=== PATIENT | male | born 1965 | race Caucasian/White ===

== ENCOUNTER 2016-09-11 18:48 | Inpatient (IN) | payer OTHER, BC ==
[2016-09-11] MEDS ORDERED: fentaNYL CITRATE 250 MCG/5 ML AMP ONE (18:52)
[2016-09-11] MEDS ORDERED: PROPOFOL 500 MG/50 ML INJ 50 ML ONE (18:57)
[2016-09-11 19:14] LABS: AUTOMATED NEUTROPHIL # 6.1 TH/MM3 (1.8-7.7); BASOPHIL # 0.2 TH/MM3 (0-0.2); BASOPHIL % 1.4 % (0.0-2.0); EOSINOPHIL # 0.3 TH/MM3 (0-0.4); EOSINOPHIL % 2.7 % (0.0-4.0); HEMATOCRIT 38.5 % (39.0-51.0); HEMO FLAGS DIFF FINAL; LYMPH % 35.4 % (9.0-44.0); LYMPHOCYTE # 3.9 TH/MM3 (1.0-4.8); MEAN CELL VOLUME 83.1 FL (80.0-100.0); MEAN CORPUSCULAR HEMOGLOBIN 28.7 PG (27.0-34.0); MEAN CORPUSCULAR HGB CONC 34.6 % (32.0-36.0); MONO % 4.6 % (0.0-8.0); NEUT % 55.9 % (16.0-70.0); PLATELET COUNT 223 TH/MM3 (150-450); RED BLOOD COUNT 4.63 MIL/MM3 (4.50-5.90); RED CELL DISTRIBUTION WIDTH 13.1 % (11.6-17.2)
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
[2016-09-11 19:17] LABS: I-STAT POTASSIUM 3.5 MMOL/L (3.5-4.9)
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
[2016-09-11] MEDS ORDERED: IOHEXOL 350 MG/ML 10 ML VIAL (for RAD DIAG) IV ONE (19:34)
[2016-09-11 19:40] LABS: APTT (PATIENT) 17.8 SEC (24.3-30.1); PROTHROMBIN TIME - PATIENT 10.7 SEC (9.8-11.6)
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
[2016-09-11] MEDS ORDERED: METF500T PO (21:07)
[2016-09-11] MEDS: HYDROmorphone HCL PF 1 MG/ML VIAL IV PUSH PRN (22:18)
[2016-09-12] VITALS (10 sets, daily range): BP systolic 130–182; BP diastolic 76–102; PULSE 98–121; RESP 16–18; TEMP 96.4–97.9; O2SAT 95–98
[2016-09-12] MEDS ORDERED: PROMETHAZINE INJ 25 MG/ML VIAL IM ONE (00:15)
[2016-09-12] MEDS ORDERED: NOVO7030P2 SQ (01:23)
[2016-09-12] MEDS ORDERED: GEMF600T PO (01:24)
[2016-09-12] MEDS ORDERED: CREON24 PO (01:25)
[2016-09-12] MEDS ORDERED: PROM25TA5 PO (01:26)
[2016-09-12] MEDS ORDERED: CYCL5TAB PO (01:27)
[2016-09-12] MEDS: HYDROmorphone HCL PF 1 MG/ML VIAL IV PUSH PRN ×4 (01:29→07:59)
[2016-09-12] MEDS ORDERED: ONDANSETRON HCL 4 MG/2 ML VIAL IV PUSH PRN (02:30)
[2016-09-12] MEDS ORDERED: INSULIN HUMAN REGULAR 1,000 UNITS/10 ML VIAL SQ PRN (02:45)
[2016-09-12] MEDS: LACTATED RINGER'S 1000 ML IV SCH ×2 (03:37→21:27)
[2016-09-12] MEDS: SODIUM CHLORID 0.9% 500 ML IV SCH ×2 (04:14→20:40)
[2016-09-12 05:35] LABS: AMYLASE 22 U/L (25-115)
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
[2016-09-12] MEDS ORDERED: ENALAPRILAT 1.25 MG/ML VIAL IV PRN (07:00)
[2016-09-12] MEDS ORDERED: SODIUM CHLORIDE 0.9% FLUSH 5 ML FLUSH IVF PRN ×2 (07:00→14:15)
--- NOTE | 2016-09-12 07:27 | RADRPT ---
EXAM DATE/TIME: 09/12/2016 07:14 [facility] COMPARISON: CT THORAX W CONTRAST, September 11, 2016, 19:21. SHOULDER LEFT (1 VW), September 11, 2016, 18:55. INDICATIONS : Shortness of breath. MEDICAL HISTORY : None. SURGICAL HISTORY : None. ENCOUNTER: Subsequent ACUITY: 2 days PAIN SCORE: 0/10 LOCATION: Bilateral chest FINDINGS: A single view of the chest demonstrates the lungs to be symmetrically aerated without evidence of mas s, infiltrate or effusion. The cardiomediastinal contours are unremarkable. Left humerus is anterior ly inferiorly dislocated with an oblique humeral shaft fracture. CONCLUSION: Humeral head remains anteriorly dislocated with a fracture. Lungs are clear Vivek Hobbs MD on September 12, 2016 at 7:24 Board Certified Radiologist. This report was verified electronically.
[2016-09-12] MEDS: ONDANSETRON HCL 4 MG/2 ML VIAL IV PRN ×2 (08:04→17:25)
[2016-09-12] MEDS: DOCUSATE SODIUM 100 MG CAP PO SCH ×2 (09:00→20:00)
[2016-09-12] MEDS ORDERED: LACTATED RINGER'S 1000 ML INJ 2,000 ML IV ONE (09:38)
[2016-09-12] MEDS ORDERED: PROPOFOL 200 MG/20 ML AMP IV ONE (09:38)
[2016-09-12] MEDS: MULTIVITAMIN INJ 10 ML, THIAMINE INJ 100 MG, FOLIC ACID INJ 1 MG in SODIUM CHLORID 0.9%... IV SCH (10:00)
[2016-09-12] MEDS ORDERED: VANCOMYCIN HCL 1000 MG VIAL ONE (10:16)
[2016-09-12] MEDS ORDERED: ceFAZolin INJ 1,000 MG VIAL ONE (10:16)
[2016-09-12] MEDS ORDERED: GENTAMICIN SULFATE 80 MG/2 ML VIAL ONE (10:16)
[2016-09-12] MEDS ORDERED: SODIUM CHLOR 0.9% 250 ML INJ 250 ML ONE (10:17)
[2016-09-12] MEDS ORDERED: ACETAMINOPHEN 1000 MG/100 ML VIAL IV ONE (11:07)
[2016-09-12] MEDS ORDERED: MIDAZOLAM HCL 2 MG/2 ML VIAL ONE (11:08)
[2016-09-12] MEDS ORDERED: DEXAMETHASONE SOD PHOS 4 MG/ML VIAL ONE (11:08)
[2016-09-12] MEDS ORDERED: FAMOTIDINE 20 MG/2 ML VIAL ONE (11:08)
[2016-09-12] MEDS ORDERED: ONDANSETRON HCL 4 MG/2 ML VIAL ONE (11:12)
[2016-09-12] MEDS ORDERED: ONDANSETRON HCL 4 MG/2 ML VIAL IV PUSH ONE (11:15)
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
[2016-09-12] MEDS ORDERED: diphenhydrAMINE HCL 25 MG CAP PO PRN (14:15)
--- NOTE | 2016-09-12 14:24 | PD.OP ---
cc: Matthew Calvert MD Operative Report Date of Surgery: Sep 12, 2016 Preoperative Diagnosis: Dislocation of left glenohumeral joint, left humeral neck fracture, comminuted left humeral shaft fracture Postoperative Diagnosis: Procedure: Open treatment of left shoulder dislocation, open reduction and fixation left proximal humerus fracture, open reduction internal fixation left humeral shaft fracture Anesthesia: Gen. Surgeon: Matthew Calvert Polysomnograph Tech(s): Steffen Guillen PA-C The surgical procedure was assisted by my physician hearing aid assistant. My P.A. presence was necessary throughout this case for the manipulation and positioning of the surgical extremity. My P.A. was assisting me throughout the duration of this procedure. The skill set of a physician hearing aid assistant was medically necessary to complete this procedure. During the surgical case the kennel technician was working at the back table and the physician hearing aid assistant was directly assisting me. Operation and Findings: Patient was seen and evaluated preoperatively. Patient was found to have a displaced proximal humerus fracture with dislocation of the humeral head. He also had a comminuted fracture of the humeral shaft. The risks and benefits of surgical and nonsurgical options were discussed in detail and informed consent was obtained for surgery. Patient was brought to the operating room and placed on or table. IV sedation and GETA were administered by anesthesiologist. Antibiotics were given prior to incision. Operative arm and shoulder were prepped with alcohol followed by Hibiclens and draped usual sterile fashion. Timeout procedure was performed. Procedure began with a 10 inch incision over the anterior shoulder and arm. Cephalic vein was identified. A deltopectoral approach was utilized proximally. Distally the brachialis was split. Attention was first turned towards reduction of the dislocation. Initial attempts to manipulate the proximal humerus reveal a humeral neck fracture. At this point the proximal humerus segment was reduced to the humeral head. Multiple threaded Steinmann pins were now placed through the proximal humerus segment into the humeral head fragment. Once the humeral head fragment was stabilized to the proximal humerus metaphyseal fragment, the humeral head was now gently reduced. A portion of the subscapularis muscle was elevated to allow for visualization of the joint. A Trinity elevator was placed between the humeral head and glenoid to aid in reduction. Multiplanar fluoroscopy confirmed reduction of the humeral head relative to the glenoid. There appeared to be a relatively large Hill- Sachs lesion along the posterior humeral head. Next attention was turned towards the humeral shaft fracture. The humeral shaft was in 3 large fragments. Each fragment was carefully keyed together. Soft tissue was removed from fracture sites. Fracture tenaculums were used to aid in reduction. Multiple 2.7 cortical lag screws were used to compress fracture fragments. Multiplanar fluoroscopy confirmed excellent alignment of the humeral shaft fragments. Next attention was turned to the urgent the humeral neck. The humeral shaft was now reduced up to the proximal humerus segment. Fracture keyed into anatomic alignment. K wires were used to hold provisional fixation. Additional 2.7 cortical lag screws were used to compress fracture fragments. At this point attention was turned towards internal fixation. A long Synthes proximal humerus plate was contoured to fit the humerus. Plate was provisionally held the bone with K wires. This plate was used to span the length of the humerus from the shoulder towards the distal humerus. 3.5 cortical screws were used to compress plate to bone. Fluoroscopy confirmed appropriate plate placement and fracture reduction. Multiple locking screws were now placed in the humeral head. Screws were predrilled and premeasured for appropriate length. Care was taken not to penetrate the articular surface. Additional screws were placed in the humeral shaft. The subscapularis tendon was now repaired with FiberWire suture. The suture was passed through bone tunnels of the lesser tuberosity. Additional sutures were passed through the plate and sutured to the plate for additional stability. Final fluoroscopy revealed well aligned fracture with well-placed hardware. Wound was thoroughly irrigated. Fascia was closed with #1 Vicryl, subcutaneous tissues closed with 3 -0 Vicryl, and skin was closed with aedlita. Sterile dressings were applied. Patient was placed into a sling. Patient was awakened and transferred to recovery in stable condition. Needle and sponge counts were correct. Matthew Calvert MD Sep 12, 2016 14:24
[2016-09-12] MEDS ORDERED: DEXTROSE 50% IN WATER 50 ML VIAL(D50) IV PUSH PRN (14:45)
[2016-09-12] MEDS ORDERED: GLUCAGON 1 MG/ML VIAL OTHER PRN (14:45)
--- NOTE | 2016-09-12 14:54 | RADRPT ---
EXAM DATE/TIME: 09/12/2016 12:03 [facility] COMPARISON: No previous studies available for comparison. INDICATIONS : ORIF left humerus. MEDICAL HISTORY : None. SURGICAL HISTORY : None. ENCOUNTER: Subsequent ACUITY: 2 days PAIN SCORE: Non-responsive. LOCATION: Left humerus. FINDINGS: Extensive hardware is noted within the left humerus status post ORIF. CONCLUSION: Status post ORIF of left humeral fracture with hardware in good position. James Weir MD on September 12, 2016 at 14:46 Board Certified Radiologist. This report was verified electronically.
[2016-09-12] MEDS ORDERED: MORPHINE SULFATE 4 MG/ML INJ ONE (15:00)
[2016-09-12] MEDS ORDERED: fentaNYL CITRATE 250 MCG/5 ML AMP ONE (15:00)
[2016-09-12] MEDS: INSULIN ASPART SUPPLEMENTAL SCALE SQ SCH ×2 (15:26→21:21)
[2016-09-12] MEDS ORDERED: *morphine SULFATE 8 MG/ML PERIprocedure ONLY ONE ×3 (15:29→15:51)
[2016-09-12] MEDS ORDERED: *LABETALOL HCL 100 MG/20 ML VIAL PERIprocedural Use ONLY ONE (15:49)
--- NOTE | 2016-09-12 16:17 | OTSOAPIP ---
TIME SESSION COMPLETED: AM TREATMENT TIME: 0 MINS. CHART REVIEWED. ATTEMPTED TO SEE FOR OT EVALUATION, HOWEVER OFF FLOOR FOR SURGERY. WILL FOLLOW NEXT DAY. Therapist: ISAAC MEDINA OT/Shahab Signature on file
--- NOTE | 2016-09-12 17:09 | EKG ---
Date Performed: 09/12/2016 Time Performed: 10:33:46 PTAGE: 50 years EKG: SINUS TACHYCARDIA NONSPECIFIC T-WAVE ABNORMALITY ABNORMAL RHYTHM ECG NO PREVIOUS TRACING DOCTOR: Hill Rudolph Interpretating Date/Time 09/12/2016 17:05:09
[2016-09-12] MEDS: KETOROLAC TROMETHAMINE 30 MG/ML (IVP) VIAL IV PUSH SCH (17:25)
[2016-09-12] MEDS: ceFAZolin 2 GM PREMIX 50 ML IV SCH (17:25)
[2016-09-12] MEDS: GEMFIBROZIL 600 MG TAB PO SCH (17:25)
[2016-09-12] MEDS: CALCIUM/VITAMIN D 250 MG/125 U TAB PO SCH (17:25)
[2016-09-12] MEDS: LIPASE/PROTEASE/AMYLASE (24,000/76,000/120,000) CAP PO SCH (17:25)
[2016-09-12] MEDS: MORPHINE SULFATE 4 MG/ML INJ IV PUSH PRN ×2 (17:25→21:22)
[2016-09-12] MEDS: ACETAMINOPHEN/HYDROcodone 325 MG/10 MG TAB PO PRN (19:58)
[2016-09-12] MEDS: FAMOTIDINE 20 MG TAB PO SCH (20:00)
[2016-09-12] MEDS: MAGNESIUM HYDROXIDE SUSP 30 ML CUP PO SCH (20:00)
[2016-09-12] MEDS: SODIUM CHLORIDE 0.9% FLUSH 5 ML FLUSH IVF SCH (20:00)
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
[2016-09-12] MEDS: PROMETHAZINE HCL 25 MG TAB PO PRN (21:22)
[2016-09-13] VITALS (8 sets, daily range): BP systolic 125–162; BP diastolic 74–86; PULSE 105–117; RESP 16–20; TEMP 96.6–98.6; O2SAT 92–96
[2016-09-13] MEDS: ONDANSETRON HCL 4 MG/2 ML VIAL IV PRN ×3 (00:16→14:04)
[2016-09-13] MEDS: HYDROmorphone HCL PF 1 MG/ML VIAL IV PUSH PRN ×4 (00:17→10:33)
[2016-09-13] MEDS: KETOROLAC TROMETHAMINE 30 MG/ML (IVP) VIAL IV PUSH SCH ×3 (00:17→12:09)
[2016-09-13] MEDS: ceFAZolin 2 GM PREMIX 50 ML IV SCH ×3 (02:37→17:54)
[2016-09-13] MEDS: SODIUM CHLOR 0.9% 1000 ML INJ 1,000 ML IV SCH ×3 (02:51→21:56)
[2016-09-13] MEDS: PROMETHAZINE HCL 25 MG TAB PO PRN ×2 (04:34→10:32)
[2016-09-13] MEDS: GEMFIBROZIL 600 MG TAB PO SCH ×2 (06:35→17:53)
[2016-09-13] MEDS: INSULIN ASPART SUPPLEMENTAL SCALE SQ SCH ×4 (06:35→21:05)
--- NOTE | 2016-09-13 06:35 | PD.ORT.PN ---
Subjective Subjective Remarks POD 1 s/p ORIF left humerus doing well. reports pain. resting comfortably Objective Vitals Vital Signs Date Time Temp Pulse Resp B/P Pulse Ox O2 Delivery O2 Flow Rate FiO2 09/13/16 04:00 96.6 105 16 148/85 94 09/13/16 00:00 96.7 108 16 140/86 94 09/12/16 20:30 104 142/92 09/12/16 20:00 97 Room Air 09/12/16 19:57 97.8 110 18 138/101 96 09/12/16 19:48 97 21 09/12/16 16:10 Nasal Cannula 2.00 09/12/16 16:00 98.5 88 18 162/94 98 Nasal Cannula 2 09/12/16 16:00 97.9 98 16 130/91 97 09/12/16 15:54 93 16 159/100 98 09/12/16 15:45 103 16 171/100 98 Nasal Cannula 3 09/12/16 15:30 100 16 160/98 97 Nasal Cannula 3 09/12/16 15:15 95 16 174/102 97 Nasal Cannula 3 09/12/16 15:00 91 18 152/95 97 Nasal Cannula 3 09/12/16 14:57 98.8 89 18 167/98 97 Nasal Cannula 3 09/12/16 10:05 112 182/99 09/12/16 10:00 98 09/12/16 08:00 97.7 115 18 169/102 95 I/O 09/12/16 09/12/16 09/12/16 09/13/16 09/13/16 09/13/16 07:00 15:00 23:00 07:00 15:00 23:00 Intake Total 135 ml 2500 ml 540 ml 360 ml Output Total 1000 ml 250 ml 400 ml Balance 135 ml 1500 ml 290 ml -40 ml Intake Oral 0 ml 240 ml 360 ml IV Total 135 ml 300 ml Other 2500 ml Output Urine Total 0 ml 250 ml 400 ml Estimated Blood Loss 1000 ml # Voids 4 # Bowel Movements 0 0 0 Result Diagram: 09/11/161849 Imaging Last 24 hours Impressions Pelvis X-Ray 09/11/161849 Signed Impressions: Service Date/Time: Sunday, September 11, 2016 18:42 - CONCLUSION: 1. No significant abnormality identified on AP pelvis radiograph. Mike Feliciano MD Head CT 09/11/161849 Signed Impressions: Service Date/Time: Sunday, September 11, 2016 19:11 - CONCLUSION: 1. No acute intracranial abnormalities. Fluid in left maxillary sinus. Mike Feliciano MD Chest X-Ray 09/11/161849 Signed Impressions: Service Date/Time: Sunday, September 11, 2016 18:42 - CONCLUSION: 1. Basilar and dependent atelectasis. No pneumothorax identified. Mike Feliciano MD Chest CT 09/11/161849 Signed Impressions: Service Date/Time: Sunday, September 11, 2016 19:21 - CONCLUSION: 1. Comminuted fracture proximal left humerus with anterior dislocation at the shoulder joint. There is also humeral shaft fracture. 2. A relatively nondisplaced fractures of the far anterior left seventh and eighth ribs. Thorax and atelectasis in Mike Feliciano MD Cervical Spine CT 09/11/161849 Signed Impressions: Service Date/Time: Sunday, September 11, 2016 19:11 - CONCLUSION: 1. No acute findings. Mild degenerative disc disease. Mike Feliciano MD Abdomen/Pelvis CT 09/11/161849 Signed Impressions: Service Date/Time: Sunday, September 11, 2016 19:21 - CONCLUSION: 1. Relatively nondisplaced fractures through the right transverse process of L2 and L3. 2. Probable mild contusion at the root of the mesentery and around the pancreatic head. No free air or significant free fluid. No solid visceral injury identified. Mike Feliciano MD Objective Remarks LUE: dressings clean and dry. intact. +sling. NVI distally with good radial nerve function Assessment & Plan Assessment and Plan 1) Left proximal humerus fracture/dislocation and humeral shaft fractures s/p ORIF - POD 1 -NWB -sling at all times -no dressing changes -pain control -plan for DC home tomrrow -f/u with Lucinda or [facility]I in 2 weeks Steffen Guillen Sep 13, 2016 06:35
[2016-09-13] MEDS ORDERED: HYDR-3366 PO (06:37)
[2016-09-13] MEDS: CALCIUM/VITAMIN D 250 MG/125 U TAB PO SCH ×3 (07:36→17:54)
[2016-09-13] MEDS: DOCUSATE SODIUM 100 MG CAP PO SCH (07:36)
[2016-09-13] MEDS: SODIUM CHLORIDE 0.9% FLUSH 5 ML FLUSH IVF SCH ×2 (07:36→21:12)
[2016-09-13 08:31] LABS: AUTOMATED NEUTROPHIL # 7.4 TH/MM3 (1.8-7.7); BASOPHIL # 0.1 TH/MM3 (0-0.2); BASOPHIL % 0.6 % (0.0-2.0); EOSINOPHIL # 0.1 TH/MM3 (0-0.4); EOSINOPHIL % 0.9 % (0.0-4.0); HEMO FLAGS DIFF FINAL; LYMPH % 24.3 % (9.0-44.0); LYMPHOCYTE # 2.7 TH/MM3 (1.0-4.8); MEAN CELL VOLUME 82.2 FL (80.0-100.0); MEAN CORPUSCULAR HEMOGLOBIN 29.1 PG (27.0-34.0); MEAN CORPUSCULAR HGB CONC 35.4 % (32.0-36.0); MONO % 7.3 % (0.0-8.0); NEUT % 66.9 % (16.0-70.0); PLATELET COUNT 242 TH/MM3 (150-450); RED BLOOD COUNT 3.17 MIL/MM3 (4.50-5.90); RED CELL DISTRIBUTION WIDTH 13.2 % (11.6-17.2)
[2016-09-13 08:42] LABS: BICARBONATE 28.9 MEQ/L (21.0-32.0); POTASSIUM 3.5 MEQ/L (3.5-5.1)
[2016-09-13] MEDS: DOCUSATE SODIUM 50 MG/SENNA 8.6 MG TAB PO SCH ×2 (10:30→21:06)
[2016-09-13] MEDS: LIPASE/PROTEASE/AMYLASE (24,000/76,000/120,000) CAP PO SCH ×3 (10:30→17:53)
[2016-09-13] MEDS: LIDOCAINE HCL 5% PATCH TD SCH (10:30)
[2016-09-13] MEDS: MULTIVITAMIN INJ 10 ML, THIAMINE INJ 100 MG, FOLIC ACID INJ 1 MG in SODIUM CHLORID 0.9%... IV SCH (10:34)
[2016-09-13] MEDS: ENOXAPARIN SODIUM 40 MG/0.4 ML SYRINGE SQ SCH (14:01)
[2016-09-13] MEDS: ACETAMINOPHEN/HYDROcodone 325 MG/10 MG TAB PO PRN ×3 (14:02→21:05)
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
[2016-09-13 20:12] LABS: HEMOGLOBIN A1b 2.5 %; HEMOGLOBIN P3 4.6 %
[2016-09-13] MEDS: FAMOTIDINE 20 MG TAB PO SCH (21:04)
[2016-09-13] MEDS: MAGNESIUM HYDROXIDE SUSP 30 ML CUP PO SCH (21:05)
[2016-09-13] MEDS: INSULIN DETEMIR 100 UNITS/ML VIAL SQ SCH (21:05)
[2016-09-13] MEDS: REMOVE OLD PATCH T-DERMAL SCH (21:06)
[2016-09-13] MEDS ORDERED: REST15CA PO (21:20)
[2016-09-13] MEDS: TEMAZEPAM 15 MG CAP PO PRN (22:33)
[2016-09-14 00:17] VITALS: BP 129/67; PULSE 109; RESP 19; TEMP 97.7; O2SAT 96
[2016-09-14] MEDS: ACETAMINOPHEN/HYDROcodone 325 MG/10 MG TAB PO PRN ×3 (00:37→09:00)
[2016-09-14] MEDS: ceFAZolin 2 GM PREMIX 50 ML IV SCH ×2 (00:37→08:51)
[2016-09-14] MEDS: LACTATED RINGER'S 1000 ML IV SCH (02:04)
[2016-09-14] MEDS: GEMFIBROZIL 600 MG TAB PO SCH ×2 (05:31→16:13)
[2016-09-14] MEDS: INSULIN ASPART SUPPLEMENTAL SCALE SQ SCH ×4 (05:31→20:23)
[2016-09-14 05:52] LABS: BICARBONATE 31.2 MEQ/L (21.0-32.0); POTASSIUM 3.7 MEQ/L (3.5-5.1)
--- NOTE | 2016-09-14 06:37 | PD.ORT.PN ---
Subjective Subjective Remarks progressing well Objective Vitals Vital Signs Date Time Temp Pulse Resp B/P Pulse Ox O2 Delivery O2 Flow Rate FiO2 09/14/16 00:17 97.7 109 19 129/67 96 09/13/16 20:11 98.5 117 20 153/74 95 09/13/16 19:55 98.6 117 20 153/74 95 09/13/16 18:08 21 09/13/16 16:36 98.5 112 18 140/75 96 09/13/16 12:00 97.3 113 18 125/76 94 09/13/16 09:03 92 21 09/13/16 08:00 97.0 110 18 162/84 92 09/13/16 07:44 Room Air I/O 09/13/16 09/13/16 09/13/16 09/14/16 09/14/16 09/14/16 07:00 15:00 23:00 07:00 15:00 23:00 Intake Total 628 ml 1200 ml 720 ml Output Total 400 ml Balance 228 ml 1200 ml 720 ml Intake Oral 360 ml 1200 ml 720 ml IV Total 268 ml Output Urine Total 400 ml # Voids 4 4 # Bowel Movements 0 0 0 Result Diagram: 09/13/16 0716 09/14/16 0500 Imaging Last 24 hours Impressions Pelvis X-Ray 09/11/161849 Signed Impressions: Service Date/Time: Sunday, September 11, 2016 18:42 - CONCLUSION: 1. No significant abnormality identified on AP pelvis radiograph. Mike Feliciano MD Head CT 09/11/161849 Signed Impressions: Service Date/Time: Sunday, September 11, 2016 19:11 - CONCLUSION: 1. No acute intracranial abnormalities. Fluid in left maxillary sinus. Mike Feliciano MD Chest X-Ray 09/11/161849 Signed Impressions: Service Date/Time: Sunday, September 11, 2016 18:42 - CONCLUSION: 1. Basilar and dependent atelectasis. No pneumothorax identified. Mike Feliciano MD Chest CT 09/11/161849 Signed Impressions: Service Date/Time: Sunday, September 11, 2016 19:21 - CONCLUSION: 1. Comminuted fracture proximal left humerus with anterior dislocation at the shoulder joint. There is also humeral shaft fracture. 2. A relatively nondisplaced fractures of the far anterior left seventh and eighth ribs. Thorax and atelectasis in Mike Feliciano MD Cervical Spine CT 09/11/161849 Signed Impressions: Service Date/Time: Sunday, September 11, 2016 19:11 - CONCLUSION: 1. No acute findings. Mild degenerative disc disease. Mike Feliciano MD Abdomen/Pelvis CT 09/11/161849 Signed Impressions: Service Date/Time: Sunday, September 11, 2016 19:21 - CONCLUSION: 1. Relatively nondisplaced fractures through the right transverse process of L2 and L3. 2. Probable mild contusion at the root of the mesentery and around the pancreatic head. No free air or significant free fluid. No solid visceral injury identified. Mike Feliciano MD Objective Remarks LUE: dressings clean and dry. intact. +sling. NVI distally with good radial nerve function Assessment & Plan Assessment and Plan 1) Left proximal humerus fracture/dislocation and humeral shaft fractures s/p ORIF - POD 2 -NWB -sling at all times -no dressing changes -pain control -plan for DC home today -f/u with Lucinda or [facility]I in 2 weeks GIBRAN GIBSON PA-C Sep 14, 2016 06:37
[2016-09-14 08:00] VITALS: BP 145/83; PULSE 98; RESP 20; TEMP 97.5; O2SAT 95
[2016-09-14] MEDS ORDERED: MAGNESIUM HYDROXIDE SUSP 30 ML CUP PO PRN (08:30)
[2016-09-14] MEDS: LIPASE/PROTEASE/AMYLASE (24,000/76,000/120,000) CAP PO SCH ×3 (08:51→18:11)
[2016-09-14] MEDS: DOCUSATE SODIUM 50 MG/SENNA 8.6 MG TAB PO SCH ×2 (08:51→20:12)
[2016-09-14] MEDS: LIDOCAINE HCL 5% PATCH TD SCH (08:51)
[2016-09-14] MEDS: PROMETHAZINE HCL 25 MG TAB PO PRN ×2 (08:52→20:23)
[2016-09-14] MEDS: SODIUM CHLORIDE 0.9% FLUSH 5 ML FLUSH IVF SCH ×2 (08:52→20:13)
[2016-09-14] MEDS: CALCIUM/VITAMIN D 250 MG/125 U TAB PO SCH ×3 (08:52→18:11)
[2016-09-14] MEDS: INSULIN DETEMIR 100 UNITS/ML VIAL SQ SCH ×2 (08:52→20:23)
[2016-09-14] MEDS: MULTIVITAMIN INJ 10 ML, THIAMINE INJ 100 MG, FOLIC ACID INJ 1 MG in SODIUM CHLORID 0.9%... IV SCH (09:11)
[2016-09-14 11:30] VITALS: BP 162/97; PULSE 108; RESP 20; TEMP 99.2; O2SAT 94
[2016-09-14] MEDS ORDERED: HYDROmorphone HCL PF 1 MG/ML VIAL IV ONE (12:00)
[2016-09-14] MEDS: MORPHINE SULFATE 4 MG/ML INJ IV PUSH PRN ×3 (12:29→20:12)
[2016-09-14] MEDS: oxyCODONE/ACETAMINOPHEN 10 MG/325 MG TAB PO PRN ×3 (12:29→22:43)
[2016-09-14] MEDS: ENOXAPARIN SODIUM 40 MG/0.4 ML SYRINGE SQ SCH (12:29)
--- NOTE | 2016-09-14 12:46 | RADRPT ---
EXAM DATE/TIME: 09/14/2016 12:05 [place] COMPARISON: No previous studies available for comparison. INDICATIONS: Right hip pain after stepping on hip today. MEDICAL HISTORY: None. SURGICAL HISTORY: None. ENCOUNTER: Initial ACUITY: 1 day PAIN SCORE: 6/10 LOCATION: Right hip. FINDINGS: There is no acute fracture or dislocation of either hip. Mild degenerative changes are noted involvi ng the hip joints bilaterally. CONCLUSION: 1. No acute fracture or dislocation. 2. Mild degenerative changes involving the hip joints bilaterally. James Weir MD on September 14, 2016 at 12:37 Board Certified Radiologist. This report was verified electronically.
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
[2016-09-14 16:00] VITALS: BP 144/90; PULSE 107; RESP 16; TEMP 98.6; O2SAT 94
[2016-09-14] MEDS: ONDANSETRON HCL 4 MG/2 ML VIAL IV PRN (16:16)
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
[2016-09-14 20:12] VITALS: BP 143/88; PULSE 110; RESP 21; TEMP 98.6; O2SAT 93
[2016-09-14] MEDS: MAGNESIUM HYDROXIDE SUSP 30 ML CUP PO SCH (20:12)
[2016-09-14] MEDS: FAMOTIDINE 20 MG TAB PO SCH (20:12)
[2016-09-14] MEDS: REMOVE OLD PATCH T-DERMAL SCH (21:00)
[2016-09-14 21:14] LABS: MEAN CORPUSCULAR HGB CONC 36.1 % (32.0-36.0)
[2016-09-14] MEDS: TEMAZEPAM 15 MG CAP PO PRN (22:40)
[2016-09-15 00:15] VITALS: BP 143/81; PULSE 106; RESP 20; TEMP 96.8; O2SAT 95
[2016-09-15] MEDS: ONDANSETRON HCL 4 MG/2 ML VIAL IV PRN ×2 (03:07→10:38)
[2016-09-15] MEDS: MORPHINE SULFATE 4 MG/ML INJ IV PUSH PRN (03:08)
[2016-09-15] MEDS: INSULIN ASPART SUPPLEMENTAL SCALE SQ SCH ×3 (06:06→16:00)
[2016-09-15] MEDS: GEMFIBROZIL 600 MG TAB PO SCH ×2 (06:06→16:29)
[2016-09-15] MEDS: oxyCODONE/ACETAMINOPHEN 10 MG/325 MG TAB PO PRN ×4 (06:35→16:29)
[2016-09-15 06:53] LABS: BICARBONATE 32.4 MEQ/L (21.0-32.0)
[2016-09-15 06:56] LABS: POTASSIUM 4.1 MEQ/L (3.5-5.1)
[2016-09-15] MEDS ORDERED: PERC10TA27 PO (07:06)
[2016-09-15 07:08] LABS: HEMATOCRIT 24.3 % (39.0-51.0); MEAN CELL VOLUME 83.9 FL (80.0-100.0); MEAN CORPUSCULAR HEMOGLOBIN 30.3 PG (27.0-34.0); PLATELET COUNT 224 TH/MM3 (150-450); RED CELL DISTRIBUTION WIDTH 13.5 % (11.6-17.2); WHITE BLOOD COUNT 9.2 TH/MM3 (4.0-11.0)
--- NOTE | 2016-09-15 07:08 | PD.ORT.PN ---
Subjective Subjective Remarks Still having difficulty with pain control Objective Vitals Vital Signs Date Time Temp Pulse Resp B/P Pulse Ox O2 Delivery O2 Flow Rate FiO2 09/15/16 00:15 96.8 106 20 143/81 95 09/14/16 22:06 Room Air 09/14/16 21:19 21 09/14/16 20:12 98.6 110 21 143/88 93 09/14/16 16:00 98.6 107 16 144/90 94 09/14/16 11:30 99.2 108 20 162/97 94 09/14/16 08:00 97.5 98 20 145/83 95 09/14/16 07:40 Room Air I/O 09/14/16 09/14/16 09/14/16 09/15/16 09/15/16 09/15/16 07:00 15:00 23:00 07:00 15:00 23:00 Intake Total 405 ml 240 ml 360 ml 360 ml Output Total 900 ml 625 ml Balance 405 ml -660 ml 360 ml -265 ml Intake Oral 360 ml 240 ml 360 ml 360 ml IV Total 45 ml Output Urine Total 900 ml 625 ml # Voids 1 3 3 # Bowel Movements 0 1 0 0 Result Diagram: 09/13/16 0716 09/15/16 0508 Imaging Last 24 hours Impressions Pelvis X-Ray 09/11/161849 Signed Impressions: Service Date/Time: Sunday, September 11, 2016 18:42 - CONCLUSION: 1. No significant abnormality identified on AP pelvis radiograph. Mike Feliciano MD Head CT 09/11/161849 Signed Impressions: Service Date/Time: Sunday, September 11, 2016 19:11 - CONCLUSION: 1. No acute intracranial abnormalities. Fluid in left maxillary sinus. Mike Feliciano MD Chest X-Ray 09/11/161849 Signed Impressions: Service Date/Time: Sunday, September 11, 2016 18:42 - CONCLUSION: 1. Basilar and dependent atelectasis. No pneumothorax identified. Mike Feliciano MD Chest CT 09/11/161849 Signed Impressions: Service Date/Time: Sunday, September 11, 2016 19:21 - CONCLUSION: 1. Comminuted fracture proximal left humerus with anterior dislocation at the shoulder joint. There is also humeral shaft fracture. 2. A relatively nondisplaced fractures of the far anterior left seventh and eighth ribs. Thorax and atelectasis in Mike Feliciano MD Cervical Spine CT 09/11/161849 Signed Impressions: Service Date/Time: Sunday, September 11, 2016 19:11 - CONCLUSION: 1. No acute findings. Mild degenerative disc disease. Mike Feliciano MD Abdomen/Pelvis CT 09/11/161849 Signed Impressions: Service Date/Time: Sunday, September 11, 2016 19:21 - CONCLUSION: 1. Relatively nondisplaced fractures through the right transverse process of L2 and L3. 2. Probable mild contusion at the root of the mesentery and around the pancreatic head. No free air or significant free fluid. No solid visceral injury identified. Mike Feliciano MD Objective Remarks LUE: dressings clean and dry. intact. +sling. NVI distally for extension and flexion of all fingers Right lower extremity: Full range of motion of hip without any discomfort. Distally neurovascularly intact. Strong dorsal flexion plantar flexion foot Assessment & Plan Assessment and Plan 1) Left proximal humerus fracture/dislocation and humeral shaft fractures s/p ORIF - POD 3 -NWB -sling at all times -no dressing changes -pain control -plan for DC home today -f/u with [facility] or [facility] in 2 weeks GIBRAN GIBSON PA-C Sep 15, 2016 07:08
[2016-09-15 07:19] LABS: REVIEW FLAG FINAL
[2016-09-15] MEDS: KETOROLAC TROMETHAMINE 30 MG/ML (IVP) VIAL IV PUSH SCH ×2 (07:45→11:30)
[2016-09-15 08:00] VITALS: BP 144/83; PULSE 97; RESP 16; TEMP 97; O2SAT 95
[2016-09-15] MEDS: LIPASE/PROTEASE/AMYLASE (24,000/76,000/120,000) CAP PO SCH ×2 (08:24→12:52)
[2016-09-15] MEDS: CALCIUM/VITAMIN D 250 MG/125 U TAB PO SCH ×3 (08:24→16:31)
[2016-09-15] MEDS: DOCUSATE SODIUM 50 MG/SENNA 8.6 MG TAB PO SCH (08:24)
[2016-09-15] MEDS: REMOVE OLD PATCH T-DERMAL SCH (08:25)
[2016-09-15] MEDS: LIDOCAINE HCL 5% PATCH TD SCH (08:25)
[2016-09-15] MEDS: INSULIN DETEMIR 100 UNITS/ML VIAL SQ SCH (08:26)
[2016-09-15] MEDS: SODIUM CHLORIDE 0.9% FLUSH 5 ML FLUSH IVF SCH (10:39)
[2016-09-15 12:00] VITALS: BP 135/81; PULSE 97; RESP 16; TEMP 97.5; O2SAT 98
[2016-09-15] MEDS: ENOXAPARIN SODIUM 40 MG/0.4 ML SYRINGE SQ SCH (12:53)
[2016-09-15 14:17] VITALS: O2SAT 95
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
[2016-09-15] MEDS ORDERED: LIDO5DIS35 TD (15:12)
[2016-09-15] MEDS ORDERED: SENN1TAB PO (15:12)
[2016-09-15] MEDS ORDERED: KETO10 PO (15:12)
[2016-09-15] MEDS ORDERED: KETOROLAC TROMETHAMINE 30 MG/ML (IVP) VIAL IV PUSH PRN (17:30)
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
[2016-09-15] MEDS ORDERED: metFORMIN HCL 500 MG TAB PO SCH (18:00)
[2016-09-15 18:08] VITALS: O2SAT 95
[2016-09-15] MEDS ORDERED: INSULIN DETEMIR 100 UNITS/ML VIAL SQ SCH (21:00)
== END 2016-09-15 18:10 | disposition home or self-care (01) | DRG 493 ==
LOC: NEPI 18:48 → EDBD 19:27 → NEDA 19:27 → N06A 09-12 01:01
PROVIDERS: ADMIT Surgery; ATTEND Surgery
PROC: 0RSKXZZ Reposition Left Shoulder Joint, External Approach (ICD-10-PCS; 2016-09-11)
PROC: 0PSD04Z Reposition Left Humeral Head with Internal Fixation Device, Open Approach (ICD-10-PCS; 2016-09-12)
PROC: 0RSK0ZZ Reposition Left Shoulder Joint, Open Approach (ICD-10-PCS; 2016-09-12)
PROC: 0PSG04Z Reposition Left Humeral Shaft with Internal Fixation Device, Open Approach (ICD-10-PCS; principal; 2016-09-12 11:37)
DX: S42.352A Displaced comminuted fracture of shaft of humerus, left arm, initial encounter for closed fracture (principal); S22.42XA Multiple fractures of ribs, left side, initial encounter for closed fracture; S36.892A Contusion of other intra-abdominal organs, initial encounter; S32.029A Unspecified fracture of second lumbar vertebra, initial encounter for closed fracture; S32.039A Unspecified fracture of third lumbar vertebra, initial encounter for closed fracture; K86.1 Other chronic pancreatitis; S06.0X1A Concussion with loss of consciousness of 30 minutes or less, initial encounter; S42.212A Unspecified displaced fracture of surgical neck of left humerus, initial encounter for closed fracture; F10.129 Alcohol abuse with intoxication, unspecified; S43.005A Unspecified dislocation of left shoulder joint, initial encounter; R40.2411 Glasgow coma scale score 13-15, in the field [EMT or ambulance]; E11.65 Type 2 diabetes mellitus with hyperglycemia; E78.1 Pure hyperglyceridemia; M25.551 Pain in right hip; Y90.9 Presence of alcohol in blood, level not specified; Z79.4 Long term (current) use of insulin; V29.9XXA Motorcycle rider (driver) (passenger) injured in unspecified traffic accident, initial encounter
CPT/HCPCS: 23650; 70450; 71010; 71260; 72125; 72170; 73020; 73060; 73501; 74177; 76000; 80048; 82150; 82435; 82565; 82947; 82948; 83036; 83690; 84132; 84295; 84520; 85025; 85027; 85610; 85730; 86850; 86900; 86901; 93005; 94150; 96374; 96375; 99152; 99291; C1713; G0390; J0131; J0690; J1100; J1170; J1580; J1650; J1815; J1885; J2250; J2270; J2405; J2550; J3010; J3370; J3411; J7030; J7040; J7050; J7120; Q0169; Q9967